=== PATIENT | male | born 1980 | race Caucasian/White ===

== ENCOUNTER → 2018-09-24 12:42 | Outpatient (CLI) | payer OTHER, SELFPAY ==
[2018-09-24 12:55] LABS: Semen Sperm Prescence Post-Vas Absent (ABSENT)
== END ==
PROVIDERS: Visit Provider Specialist
DX: Z30.2 Encounter for sterilization (principal)
CPT/HCPCS: 89321

== ENCOUNTER → 2018-09-29 13:51 | Outpatient (CLI) | payer OTHER, SELFPAY ==
[2018-09-29 14:12] LABS: Semen Sperm Prescence Post-Vas Absent (ABSENT)
== END ==
PROVIDERS: Visit Provider Specialist
DX: Z30.2 Encounter for sterilization (principal)
CPT/HCPCS: 89321

== ENCOUNTER → 2021-11-18 06:49 | Outpatient (CLI) | payer OTHER, SELFPAY ==
--- NOTE | 2021-11-18 | DI.MRI.S_ITS ---
PROCEDURE: MR ANKLE RT WO CON INDICATIONS: Pain in right foot TECHNIQUE: Noncontrast sagittal T1 spin echo and T2 fast spin echo with fat saturation, axial proton density fast spin echo and T2 fast spin echo with fat saturation, coronal T1 spin echo and T2 fast spin echo with fat saturation through the ankle/hindfoot. COMPARISON: None. FINDINGS: Image quality: Excellent. Bones and joints: No bone marrow contusions or fractures. No hindfoot coalitions. No osteochondral injuries of the talar dome. Mild degenerative spurring is seen at the dorsal aspect of the talonavicular joint. Medial structures: Mildly increased [id number] and indistinct fibers of the deep deltoid ligament are consistent with a prior low-grade sprain. The tibiospring ligament is thickened at the level of the talar head, consistent with a prior sprain/partial tear. The spring ligament components are grossly intact. A small amount of fluid is seen in the posterior tibialis tendon sheath, consistent with mild tenosynovitis. The flexor digitorum longus and flexor hallucis longus tendons are intact. The posterior tibial neurovascular bundle appears normal within the tarsal tunnel, without extrinsic mass effect. Lateral structures: There is chronic complete tearing of the anterior talofibular ligament. The calcaneofibular ligament appears attenuated near its fibular attachment is also likely chronically completely torn. The posterior talofibular ligament remains intact. The anterior and posterior tibiofibular ligaments are intact. There is moderate peroneus brevis and longus tenosynovitis. The sinus tarsi demonstrates normal fatty signal. Anterior structures: The tibialis anterior, extensor hallucis longus, and extensor digitorum longus tendons appear intact. The dorsal talonavicular ligament appears intact. Posterior and plantar structures: Achilles tendon is intact. Focal mild thickening of the central band of the plantar fascia approximately 2.5-3 cm from its origin with mild surrounding edema is suspicious for focal fasciitis or low-grade partial tearing. No abductor digiti quinti muscle atrophy to suggest Eduardo neuropathy. IMPRESSION: 1. 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 2. Moderate peroneus brevis and longus tenosynovitis. 3. Chronic low-grade sprain/partial tear of the deep fibers of the deltoid ligament and the tibiospring ligament. 4. Mild posterior tibialis tenosynovitis. 5. Focal mild thickening of the central band of the plantar fascia approximately 2.5-3 cm distal to its origin with mild surrounding soft tissue edema is suspicious for focal low-grade partial tearing or focal plantar fasciitis. Dictated by: Sam Lr M.D. on 11/18/2021 at 8:56 Approved by: Sam Lr M.D. on 11/18/2021 at 9:09
== END ==
PROVIDERS: Referring Provider Podiatrist; Visit Provider Podiatrist
DX: S93.412A Sprain of calcaneofibular ligament of left ankle, initial encounter (principal); S93.491A Sprain of other ligament of right ankle, initial encounter; S93.421A Sprain of deltoid ligament of right ankle, initial encounter; M65.871 Other synovitis and tenosynovitis, right ankle and foot; G57.51 Tarsal tunnel syndrome, right lower limb; M79.671 Pain in right foot; R26.2 Difficulty in walking, not elsewhere classified
CPT/HCPCS: 73721